=== PATIENT | male | born 1955 | race Caucasian/White ===

== ENCOUNTER 2020-01-06 11:09 | Outpatient (REF) | payer SELFPAY ==
--- NOTE | 2020-01-06 12:30 | MHC.AU.P13 ---
Hearing Instrument Follow-Up- Binaural Date of Visit: 01/06/20 Right Ear: Water Meter Installer: Phonak Model: Sunitha Q50-UP Serial Number: [id number] Warranty: 08/22/2017 Service Plan: 08/22/2017 Battery Size: 675 Type of Mold: Westone otoblast clear shell Left Ear: Water Meter Installer: Phonak Model: Sunitha Q50-UP Serial Number: [id number] Warranty: 08/22/2017 Service Plan: 08/22/2017 Battery Size: 675 Type of Mold: Westone otoblast clear shell Follow-Up Summary: Patient arrived to sweet pickled fruit maker his new Westone ear molds. Molds fit well-no feedback noted. Recommendations: Recommendations: Please contact our clinic with any questions or concerns. Diagnosis Code(s): Primary Diagnosis: H90.3 Bilateral Sensorineural Hearing Loss Services Performed: Hearing Aid Evaluation and Earmold:: Ear Mold, each Signature: Provider: Khari Wilson, CCC-A
== END 2020-01-06 11:10 | disposition home or self-care (01) ==
LOC: HO.HAP 11:09
PROVIDERS: Visit Provider Internal Medicine
DX: Z46.1 Encounter for fitting and adjustment of hearing aid (principal)
CPT/HCPCS: V5264

== ENCOUNTER → 2020-01-18 14:00 | Outpatient (BNVA) | payer OTHER, MEDICARE, SELFPAY | PROVIDERS: PCP Internal Medicine; Visit Provider Urology | DX: R33.9 Retention of urine, unspecified (principal) | CPT/HCPCS: 99203; 99204 ==

== ENCOUNTER 2020-01-31 12:15 | Outpatient (REF) | payer MEDICARE, OTHER, SELFPAY ==
[2020-01-31 14:40] LABS: Basophils Percent Auto 0.2 % (0-2); Eosinophils Absolute Auto 0.1 X10*3/uL (0.0-0.4); Eosinophils Percent Auto 0.2 % (0-4); Hematocrit 37.4 % (42-52); Imm Gran Abs Auto 0.34 X10*3/uL (0.00-0.03); Imm Gran Pct Auto 1.3 % (0.0-0.4); Lymphocytes Absolute Auto 1.5 X10*3/uL (1.2-4.9); Lymphocytes Percent Auto 5.5 % (20-40); MANUAL DIFF FLAG SCAN; Mean Corpuscular HGB Conc 32.1 g/dl (31.0-36.0); Mean Corpuscular Volume 87.4 fL (80-98); Mean Platelet Volume 10.1 fL (9.4-12.4); Monocytes Absolute Auto 1.2 X10*3/uL (0.1-1.2); Monocytes Percent Auto 4.7 % (2-11); Neutrophils Absolute Auto 23.1 X10*3/uL (2.0-8.3); Neutrophils Percent Auto 88.1 % (45-73); Platelet Count 217 X10*3/uL (160-400); Red Blood Count 4.28 X10*6/uL (4.60-5.80); Red Cell Distribution Width 13.8 % (11.0-16.0); SCAN SMEAR FLAG 1; White Blood Count 26.3 X10*3/uL (4.8-10.8)
[2020-01-31 15:02] LABS: Glucose Urine UA NEG (NEG); Leukocyte Esterase Urine 1+ (NEG); Nitrite Urine POS (NEG); Specific Gravity - Urine 1.025 (1.005-1.025); Urine Blood 3+ (NEG); Urine Ketones 5 MG/DL (NEG); Urine Protein 2+ MG/DL (NEG-TRACE)
[2020-01-31 15:03] LABS: Appearance Urine CLOUDY; Color Urine DARK YELLOW
[2020-01-31 15:11] LABS: Bacteria Urine 2+ /LPF; Sperm Urine NOTED; Squamous Epithelial Cell Urine 1+ /LPF
[2020-01-31 15:13] LABS: SLIDE REVIEW VERIFIED
[2020-01-31 15:18] LABS: Alanine Aminotransferase 15 U/L (0-40); Albumin Level 3.9 g/dL (3.5-5.0); Alkaline Phosphatase 76 U/L (39-117); Anion Gap 18 (12-20); Aspartate Amino Transferase 13 U/L (5-37); Bilirubin Total 1.6 mg/dL (0.0-1.0); Blood Urea Nitrogen 25 mg/dL (9-16); Calcium 8.7 mg/dL (8.4-10.2); Carbon Dioxide 24 mmol/L (22-29); Chloride 101 mmol/L (96-108); Estimated Glomerular Filt Rate 44; Glucose Random 156 mg/dL (60-115); Sodium 139 mmol/L (135-145); Total Protein 6.5 g/dL (6.5-8.0)
[2020-01-31 15:34] LABS: C Reactive Protein 32.89 mg/dL (< or = 0.50)
== END 2020-01-31 12:16 | disposition home or self-care (01) ==
LOC: HO.10HDL 12:15
PROVIDERS: Visit Provider Internal Medicine
DX: J44.9 Chronic obstructive pulmonary disease, unspecified (principal); Z94.0 Kidney transplant status
CPT/HCPCS: 36415; 80053; 81001; 81003; 85025; 86140; 87086; 87088; 87186

== ENCOUNTER 2020-01-31 12:47 | Outpatient (REF) | payer OTHER, MEDICARE, SELFPAY ==
--- NOTE | 2020-01-31 | US_ITS ---
EXAMINATION: US RENAL US ULTRASOUND CLINICAL INFORMATION: Bladder distention. COMPARISON: None TECHNIQUE: Routine ultrasound imaging of transplant kidney was performed. Routine ultrasound imaging of the scrotum was performed, as well. FINDINGS: TRANSPLANT KIDNEY ULTRASOUND: The transplant kidney measures 11.7 cm in length, 6.3 cm in AP and 7.71 cm wide. There is normal cortical thickness. No echogenic stones, cyst or hydronephrosis seen. There is no perinephric fluid collection. SCROTUM ULTRASOUND: Right testis measures 4.5 x 2.2 x 2.4 cm and volume 12.4 cm. Mild heterogenous echotexture is seen. There is no focal lesion. The right epididymis is enlarged and hyperinflated. The right epididymal tail measures 1.5 cm in AP dimension. There are small right epididymal head cysts measuring 0.4 x 0.4 x 0.5 cm. Mild increased vascularity is seen in the right epididymis. The left testis is homogeneous in echotexture measuring 4.3 x 2.9 x 3.2 cm and volume 20.9 mL. No focal lesion seen. The left epididymis is enlarged and hyperemic. The left epididymal tail measures 1.6 cm in AP dimension. There is increased vascular flow to left epididymis. There is a small left hydrocele. There is mild scrotal wall thickening measuring 0.8 cm on the right and 0.7 cm on the left. No evidence of varicocele. US/US scrotum IMPRESSION: Suspect bilateral epididymitis with epididymal enlargement. Heterogenous right testicle but no focal lesion seen. Normal left testis. Small left hydrocele. Diffuse scrotal skin wall thickening, as described above. Unremarkable transplant kidney ultrasound.
--- NOTE | 2020-01-31 13:19 | US_ITS ---
EXAMINATION: US RENAL US ULTRASOUND CLINICAL INFORMATION: Bladder distention. COMPARISON: None TECHNIQUE: Routine ultrasound imaging of transplant kidney was performed. Routine ultrasound imaging of the scrotum was performed, as well. FINDINGS: TRANSPLANT KIDNEY ULTRASOUND: The transplant kidney measures 11.7 cm in length, 6.3 cm in AP and 7.71 cm wide. There is normal cortical thickness. No echogenic stones, cyst or hydronephrosis seen. There is no perinephric fluid collection. SCROTUM ULTRASOUND: Right testis measures 4.5 x 2.2 x 2.4 cm and volume 12.4 cm. Mild heterogenous echotexture is seen. There is no focal lesion. The right epididymis is enlarged and hyperinflated. The right epididymal tail measures 1.5 cm in AP dimension. There are small right epididymal head cysts measuring 0.4 x 0.4 x 0.5 cm. Mild increased vascularity is seen in the right epididymis. The left testis is homogeneous in echotexture measuring 4.3 x 2.9 x 3.2 cm and volume 20.9 mL. No focal lesion seen. The left epididymis is enlarged and hyperemic. The left epididymal tail measures 1.6 cm in AP dimension. There is increased vascular flow to left epididymis. There is a small left hydrocele. There is mild scrotal wall thickening measuring 0.8 cm on the right and 0.7 cm on the left. No evidence of varicocele. US/US renal BI IMPRESSION: Suspect bilateral epididymitis with epididymal enlargement. Heterogenous right testicle but no focal lesion seen. Normal left testis. Small left hydrocele. Diffuse scrotal skin wall thickening, as described above. Unremarkable transplant kidney ultrasound.
== END 2020-01-31 12:48 | disposition home or self-care (01) ==
LOC: HO.US 12:47
PROVIDERS: PCP Internal Medicine; Visit Provider Internal Medicine
DX: N50.89 Other specified disorders of the male genital organs (principal); N32.89 Other specified disorders of bladder; N45.1 Epididymitis
CPT/HCPCS: 36415; 76775; 76870; 80053; 81001; 85025; 86140; 87086; 87088; 87186; 99212

== ENCOUNTER 2020-05-02 07:44 | Outpatient (REF) | payer OTHER, MEDICARE, SELFPAY ==
[2020-05-02 10:00] LABS: MANUAL DIFF FLAG NO
[2020-05-02 10:06] LABS: Basophils Percent Auto 0.2 % (0-2); Eosinophils Percent Auto 0.5 % (0-4); Hematocrit 39.7 % (42-52); Hemoglobin 13.1 g/dl (14.0-18.0); Imm Gran Abs Auto 0.01 X10*3/uL (0.00-0.03); Imm Gran Pct Auto 0.2 % (0.0-0.4); Lymphocytes Absolute Auto 1.8 X10*3/uL (1.2-4.9); Lymphocytes Percent Auto 32.4 % (20-40); Mean Corpuscular Hemoglobin 27.8 pg (27.0-33.0); Mean Corpuscular Volume 84.3 fL (80-98); Mean Platelet Volume 10.5 fL (9.4-12.4); Monocytes Absolute Auto 0.4 X10*3/uL (0.1-1.2); Monocytes Percent Auto 7.7 % (2-11); Neutrophils Absolute Auto 3.3 X10*3/uL (2.0-8.3); Platelet Count 140 X10*3/uL (160-400); Red Blood Count 4.71 X10*6/uL (4.60-5.80); Red Cell Distribution Width 14.3 % (11.0-16.0); White Blood Count 5.6 X10*3/uL (4.8-10.8)
[2020-05-02 10:35] LABS: Estimated Average Glucose 140 mg/dL; Hemoglobin A1c % 6.5 %
[2020-05-02 10:44] LABS: Creatinine Urine 150.26 mg/dL; Microalbum/Creatinine Ratio Ur 9.9 ug/mg cr
[2020-05-02 10:47] LABS: Alanine Aminotransferase 16 U/L (0-40); Albumin Level 3.9 g/dL (3.5-5.0); Alkaline Phosphatase 77 U/L (39-117); Anion Gap 13 (12-20); Aspartate Amino Transferase 18 U/L (5-37); Bilirubin Total 1.1 mg/dL (0.0-1.0); Blood Urea Nitrogen 20 mg/dL (9-16); Calcium 8.9 mg/dL (8.4-10.2); Carbon Dioxide 27 mmol/L (22-29); Chloride 107 mmol/L (96-108); Cholesterol 177 mg/dL; Estimated Glomerular Filt Rate > 60; Glucose Fasting 92 mg/dL (60-99); HDL Cholesterol 37 mg/dL; LDL Cholesterol Calculated 109 mg/dl; Magnesium 1.6 mg/dL (1.6-2.6); Potassium 3.8 mmol/l (3.3-5.1); Sodium 143 mmol/L (135-145); Total Protein 6.2 g/dL (6.5-8.0); Triglycerides 155 mg/dL
== END 2020-05-02 07:45 | disposition home or self-care (01) ==
LOC: HO.10HDL 07:44
PROVIDERS: Visit Provider Internal Medicine
DX: E11.9 Type 2 diabetes mellitus without complications (principal); I10 Essential (primary) hypertension; E78.5 Hyperlipidemia, unspecified; Z94.0 Kidney transplant status
CPT/HCPCS: 36415; 80053; 80061; 82043; 83036; 83735; 85025

== ENCOUNTER 2020-05-28 13:22 | Outpatient (REF) | payer SELFPAY ==
--- NOTE | 2020-05-28 13:52 | MHC.AU.P13 ---
Hearing Instrument Maintenance Date of Visit: 05/28/20 Right Ear: Stringing Machine Tender: Phonak Model: Sunitha Q50-UP Serial Number: [id number] Repair Warranty: 08/22/2017 Service Plan: 08/22/2017 Battery Size: 675 Tubing: TUBE LOCK Type of Mold: Westone otoblast clear shell Left Ear: Stringing Machine Tender: Phonak Model: Sunitha Q50-UP Serial Number: [id number] RepairWarranty: 08/22/2017 Service Plan: 08/22/2017 Battery Size: 675 Tubing: TUBE LOCK Type of Mold: Westone otoblast clear shell Summary: Patient seen for tubing change as well as replaced amanda covers - gave patient extra. He states (as at last visit) he's interested in new hearing aids and will obtain MD order for audiological re-evaluation. Aids amplifying clearly but volume control not working. Aids are now five years old. Signature: Provider: CLARITA Lamar-
== END 2020-05-28 13:23 | disposition home or self-care (01) ==
LOC: HO.HAP 13:22
DX: Z13.89 Encounter for screening for other disorder (principal)

== ENCOUNTER 2020-06-01 08:54 | Outpatient (REF) | payer OTHER, MEDICARE, SELFPAY ==
--- NOTE | 2020-06-01 11:20 | MHC.AU.MED ---
Medical Clearance for Hearing Instrumentation Date: 06/01/20 Patient Name: Octavio De Guzman JR Date of : 1955 Primary Care Provider: Referring Provider: Oziel Solomon MD We have seen your patient on 06/01/20 and have determined that they are a candidate for amplification (See accompanying report). Specifically, they would benefit from: Hearing aid use in both ears There is a statute that addresses Medical Evaluation Requirements prior to fitting a patient with a hearing aid. According to [place] statute 265 CMR:6.03(1), (a) General. Except as provided in 265 CMR 6.03(1)(b), a accounts supervisor shall not sell a hearing aid unless the prospective user has presented to the accounts supervisor a written statement signed by a licensed physician that states that the patient's hearing loss has been medically evaluated and the patient may be considered a candidate for a hearing aid. The medical evaluation must have taken place within the preceding six months. Please note: Due to the [place] Statute referenced above, we cannot accept a signature other than that of a licensed physician. MANAGER DISTRIBUTION and PA signatures cannot be accepted. I am in agreement with the above recommendation. There is no medical contraindication for hearing instrumentation. Physician Signature Date Physician Name (Printed)
--- NOTE | 2020-06-04 13:10 | MHC.AU.P13 ---
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 Octavio is also interested in obtaining new hearing aids. Previous Hearing Test Results: 05/24/2014 [facility] Bilateral moderate dropping to profound sensorineural hearing loss with 56% speech understanding for the right ear and 28% for the left ear Ear History: History of Ear Wax Buildup: Very dry and flaking skin in both ear canals Medical History: Medical History: Cancer Diabetes Heart Problems High Blood Pressure Polycystic Kidney Disease with Kidney Transplant High cholesterol Skin Cancer treated with radiation and chemotherapy completed in March 2020 Medication List: Tacrolimus, Prednisone, Carvedilol, Ezetimibe, Omeprazole, Humilin, Tyrone 3, Fish Oil Hearing Instrument History- Right Ear: Stage Setting Painter Apprentice: Xyleme Model: Sunitha Q50-UP Serial Number: [id number] Battery Size: 675 Repair Warranty: 08/22/2017 Loss and Damage Warranty: Service Plan: 08/22/2017 Dispensed By: [facility] Date of Fittin06/14/2014 Hearing Instrument History- Left Ear: Stage Setting Painter Apprentice: Pixabilityak Model: Sunitha Q50-UP Serial Number: [id number] Battery Size: 675 Warranty: 08/22/2017 Loss and Damage Warranty: Service Plan: 08/22/2017 Dispensed By: [facility] Date of Fittin06/14/2014 Otoscopy: Right Ear: Partially occluded with cerumen Left Ear: Partially occluded with cerumen Tympanometry: Tympanometry performed due to: To determine if cerumen blockage is fully occluding canal(s) Right Ear: Normal Middle Ear System (Type A) Left Ear: Normal Middle Ear System (Type A) Hearing Evaluation: Transducer(s) Used: Insert Earphones Bone Conduction Method: Conventional Audiometry Stimuli Used: Pure Tones Right Ear: Description of Hearing: Severe to profound sensorineural hearing loss with a mixed component noted at 1000 Hz. Thresholds are 10-20 dB poorer for the right ear compared to the left at 250, 2000, and 6000 Hz. Left Ear: Description of Hearing: Severe to profound sensorineural hearing loss with a mixed component noted at 1000 Hz. Speech Recognition Threshold (SRT): Method Used: Monitored Live Voice Stimuli Used: Spondee Words Right Ear: 80 dB HL Left Ear: 75 dB HL Word Discrimination: Method: Recorded Lists Word Lists Used: NU-6 Right Ear: 68% at 110 dB HL Left Ear: 72% at 105 dB HL Comparison: Compared to the most recent evaluation: Thresholds have decreased bilaterally. Speech discrimination has improved for both ears compared to 2015 results Recommendations: Audiological re-evaluation in one year. Will send a reminder card Trial with new amplification is recommended. Medical clearance from a physician is required before fitting. Hearing Aid Fitting will be scheduled when all materials arrive. Follow-up with physician for cerumen removal. See Hearing Aid Evaluation report for more information. Used Ear Wax M.D. ear drops today. Recommend Octavio obtain these [id number] ear drops to use periodically to reduce cerumen buildup. Advise cerumen removal by a physician prior to fitting of the new hearing aids. Also discussed using Hydrocortisone Cream to help with the itch and flaking of the skin of the ears. Diagnosis: Primary Diagnosis: H90.3 Bilateral Sensorineural Hearing Loss Services Performed: Comprehensive Audiological Evaluation (CPT 79135) Tympanometry (CPT 65477) Signature: Provider: Khari Sheikh, MELODIE-A
--- NOTE | 2020-06-04 13:24 | MHC.AU.P13 ---
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 Patient would like to purchase new aids. He will contact his insurance company to determine if he has any benefit. Discussed hearing aid options and levels of technology. Hearing Instrument Selection: Right Ear: Dental Equipment Technician: Phonak Model: Sunitha P 50-UP Battery Size: 675 Color: Sand Beige Tubing: TUBE LOCK Type of Mold: Westone [place] clear shell Left Ear: Dental Equipment Technician: Phonak Model: Sunitha P 50-UP Battery Size: 675 Color: Sand Beige Tubing: TUBE LOCK Type of Mold: Westone [place] clear shell Accessories/Assistive Technology: Plan: Plan of Care for Hearing Instrument Fitting: Patient wishes to purchase hearing aids as prescribed Action Taken/Action Needed: Earmold Impressions Taken Medical Clearance to be requested from PCP/ENT Hearing Fitting to be scheduled when materials arrive Comments: Purchasing new hearing aids. Will schedule Hearing Aid Fitting when all materials arrive. Diagnosis Code(s): Primary Diagnosis: H90.3 Bilateral Sensorineural Hearing Loss Services Performed: Binaural Hearing Aid Evaluation and earmold impressions [place] Non-Quantity Charges: HANC: NonBillable Event Signature: Provider: Khari Sheikh, MELODIE-A
== END 2020-06-01 08:55 | disposition home or self-care (01) ==
LOC: HO.SH 08:54
PROVIDERS: Visit Provider Internal Medicine
DX: H90.3 Sensorineural hearing loss, bilateral (principal)
CPT/HCPCS: 92557; 92567

== ENCOUNTER 2020-06-01 10:27 | Outpatient (REF) | payer SELFPAY | END 2020-06-01 10:28 | disposition home or self-care (01) | LOC: HO.HAP 10:27 | PROVIDERS: Visit Provider Internal Medicine | DX: H90.3 Sensorineural hearing loss, bilateral (principal) | CPT/HCPCS: 92700; V5261 ==

== ENCOUNTER 2020-07-04 09:52 | Outpatient (REF) | payer SELFPAY | END 2020-07-04 09:53 | disposition home or self-care (01) | LOC: HO.HAP 09:52 | PROVIDERS: Visit Provider Internal Medicine | DX: Z46.1 Encounter for fitting and adjustment of hearing aid (principal); Z90.3 Acquired absence of stomach [part of] | CPT/HCPCS: V5261 ==

== ENCOUNTER 2020-07-13 10:50 | Outpatient (REF) | payer OTHER, MEDICARE, SELFPAY ==
[2020-07-13 14:01] LABS: MANUAL DIFF FLAG NO
[2020-07-13 14:11] LABS: Basophils Percent Auto 0.1 % (0-2); Eosinophils Percent Auto 0.6 % (0-4); Hematocrit 39.8 % (42-52); Hemoglobin 13.1 g/dl (14.0-18.0); Imm Gran Abs Auto 0.03 X10*3/uL (0.00-0.03); Imm Gran Pct Auto 0.4 % (0.0-0.4); Lymphocytes Absolute Auto 1.4 X10*3/uL (1.2-4.9); Lymphocytes Percent Auto 20.3 % (20-40); Mean Corpuscular HGB Conc 32.9 g/dl (31.0-36.0); Mean Corpuscular Hemoglobin 28.1 pg (27.0-33.0); Mean Corpuscular Volume 85.4 fL (80-98); Mean Platelet Volume 10.5 fL (9.4-12.4); Monocytes Absolute Auto 0.4 X10*3/uL (0.1-1.2); Monocytes Percent Auto 6.3 % (2-11); Neutrophils Absolute Auto 4.8 X10*3/uL (2.0-8.3); Neutrophils Percent Auto 72.3 % (45-73); Platelet Count 153 X10*3/uL (160-400); Red Blood Count 4.66 X10*6/uL (4.60-5.80); Red Cell Distribution Width 14.3 % (11.0-16.0); White Blood Count 6.7 X10*3/uL (4.8-10.8)
[2020-07-13 14:38] LABS: Alanine Aminotransferase 16 U/L (0-40); Albumin Level 4.1 g/dL (3.5-5.0); Alkaline Phosphatase 91 U/L (39-117); Anion Gap 12 (12-20); Aspartate Amino Transferase 15 U/L (5-37); Bilirubin Total 0.8 mg/dL (0.0-1.0); Blood Urea Nitrogen 16 mg/dL (9-16); Calcium 9.1 mg/dL (8.4-10.2); Carbon Dioxide 30 mmol/L (22-29); Chloride 106 mmol/L (96-108); Estimated Glomerular Filt Rate 59; Glucose Random 173 mg/dL (60-115); Sodium 144 mmol/L (135-145); Total Protein 6.5 g/dL (6.5-8.0)
== END 2020-07-13 10:51 | disposition home or self-care (01) ==
LOC: HO.10HDL 10:50
PROVIDERS: Visit Provider Internal Medicine
DX: I12.9 Hypertensive chronic kidney disease with stage 1 through stage 4 chronic kidney disease, or unspecified chronic kidney disease (principal); N18.9 Chronic kidney disease, unspecified; K21.9 Gastro-esophageal reflux disease without esophagitis
CPT/HCPCS: 36415; 80053; 85025

== ENCOUNTER 2020-08-02 12:27 | Outpatient (REF) | payer OTHER, SELFPAY | END 2020-08-02 12:28 | disposition home or self-care (01) | LOC: HO.HAP 12:27 | PROVIDERS: Visit Provider Internal Medicine | DX: Z46.1 Encounter for fitting and adjustment of hearing aid (principal); H90.3 Sensorineural hearing loss, bilateral | CPT/HCPCS: 93005; V5299 ==

== ENCOUNTER → 2020-08-02 | Outpatient (REF) | payer OTHER, SELFPAY | LOC: HO.CARD | PROVIDERS: Visit Provider Internal Medicine Cardiovascular Disease | DX: R07.9 Chest pain, unspecified (principal) | CPT/HCPCS: 93005 ==

== ENCOUNTER → 2020-08-13 08:12 | Outpatient (REF) | payer OTHER, SELFPAY ==
--- NOTE | 2020-08-13 | CA_ITS ---
Acquisition Time: 2020-08-13 08:28:35 Total Exercise Time: 00:07:02 Test Indications: Chest Pain Medications: AMLODIPINE CARVEDILOL EZETIMIBE INSULIN OMEPRAZOLE PREDNISONE TACRILIMUS Protocol: PHOEBE Max HR: 125 BPM 81% of Pred: 154 BPM Max BP: 160/074 mmHG Max Work Load: 8.6 METS Exercise stress nuclear using Phoebe protocol, total of 7 min 2 sec. METS 8.60 and TAPHR up to 81 %. Pt tolerated well, reports mild chest thightness at peak exercise that resolved in couple minutes. EKG with occ. PAC's and PVC's, No ischemic changes seen during exercise or in recovery. Nuclear images to follow. Normotensive response to exercise. Test reviewed with Dr. Hobbs. Referred By: Kye Brown Overread By: Carolee Hudson NP
--- NOTE | ~2020-08-13 | NM_ITS ---
Exercise Myocardial perfusion study Indication: Chest pain to evaluate for myocardial ischemia Technique: The patient was brought in for an exercise perfusion study on 08/13/2020. Patient performed exercise as per Sohan protocol and was injected 25 mCi of sestamibi was given intravenously one target HR was achieved. Images were obtained using the SPECT gamma camera interlaced with the gating device. Images were obtained in supine position. Resting perfusion study was performed on 08/14/2020. Patient was administered 25 mCi of sestamibi intravenously at rest. Images were then obtained in supine position. Images obtained with and without CT attenuation. Total DLP 83 mGy-cm. Images were processed with the software and compared side to side in short axis, horizontal long axis and vertical long axis views. Findings: The stress perfusion study showed non attenuated images show mildly reduced uptake in the basal and mid inferior wall of the LV myocardium. Remainder of the LV myocardium normally perfused. Attenuation corrected images show minimally reduced uptake in the apex of the LV myocardium.. The gated study shows normal LV systolic function with calculated LVEF of 68%. LV cavity is normal in size. The gated study shows normal systolic wall thickening and contraction of all segments. There is no transient ischemic dilation. Resting study shows no change in perfusion pattern compared to stress perfusion study. Gating at rest reveals normal systolic wall motion with ejection fraction at 59%. The findings are consistent with normal myocardial perfusion. NM/NM cardiolite stress test Impression: 1. Normal myocardial perfusion 2. Gated LVEF is 68% 3. Transient ischemic dilatation not present Stress EKG is equivocal for ischemia
== END ==
LOC: HO.CARD 08:12
PROVIDERS: PCP Internal Medicine; Visit Provider Internal Medicine Cardiovascular Disease
DX: R07.9 Chest pain, unspecified (principal)
CPT/HCPCS: 78452; 93016; 93017; 93018; A9500

== ENCOUNTER → 2020-08-23 12:36 | Outpatient (BNVA) | payer OTHER, SELFPAY | PROVIDERS: PCP Internal Medicine; Referring Provider Internal Medicine; Visit Provider Internal Medicine Cardiovascular Disease ==

== ENCOUNTER 2020-10-23 12:30 | Outpatient (REF) | payer OTHER, SELFPAY ==
--- NOTE | 2020-10-23 17:13 | PFT_ITS ---
Forced vital capacity is normal. FEV1 in normal range, but FEV1/FVC is at the borderline level. [id number] normal and MVV also normal. Post bronchodilator therapy, there is no significant change. Total lung capacity normal. Residual volume slightly increased. Diffusion capacity is slightly decreased. CONCLUSION: These study is within normal limits. However, FEV1/FVC ratio is at the lower limit of normal and diffusion capacity is slightly decreased. This may indicate presence of pulmonary emphysema. Clinical correlation is recommended. Kenia Mckeon MD MSB/MODL / [id number]
== END 2020-10-23 12:31 | disposition home or self-care (01) ==
LOC: HO.RESP 12:30
PROVIDERS: PCP Internal Medicine; Visit Provider Internal Medicine Cardiovascular Disease
DX: R07.9 Chest pain, unspecified (principal)
CPT/HCPCS: 94060; 94727; 94729

== ENCOUNTER → 2020-10-25 13:03 | Outpatient (BNVA) | payer OTHER, SELFPAY | PROVIDERS: PCP Internal Medicine; Referring Provider Internal Medicine; Visit Provider Nurse Practitioner Family ==

== ENCOUNTER 2020-12-11 06:53 | Emergency (ER) | payer OTHER, SELFPAY ==
[2020-12-11 07:06] VITALS: BP 175/94; PULSE 68; RESP 18; O2SAT 97
[2020-12-11 07:12] VITALS: BP 175/94; PULSE 68; RESP 16; TEMP 36.5; O2SAT 99; BMI 24.2
--- NOTE | 2020-12-11 07:43 | ED.WOUNDLAC ---
HPI - Wound/Laceration General Chief Complaint: Wound/Laceration Stated Complaint: laceration to abdomin Time Seen by Provider: 12/11/20 07:37 Source: patient Mode of arrival: ambulatory Limitations: no limitations History of Present Illness HPI narrative: 65 years old male came in for evaluation of superficial wound on right chest wall. 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 when it slipped and cut his right side of the chest, no active bleeding, no shortness of breath, not sure when the last booster for tetanus shot, Related Data Home Medications Medication Instructions Recorded Confirmed carvedilol 25 mg tablet 25 mg PO BID 01/18/20 10/25/20 ezetimibe 10 mg tablet 10 mg PO DAILY 01/18/20 10/25/20 omeprazole 20 mg tablet,delayed 20 mg PO DAILY 01/18/20 10/25/20 release prednisone 5 mg/5 mL oral solution 5 mg PO DAILY 01/18/20 10/25/20 tacrolimus 1 mg capsule,extended 1 mg PO QAM 01/18/20 10/25/20 release 24 hr amlodipine 10 mg tablet 10 mg PO DAILY 08/02/20 10/25/20 insulin NPH isoph U-100 human 100 14 unit SUBCUT QAM ml 08/02/20 10/25/20 unit/mL (3 mL) subcutaneous pen (Humulin N NPH U-100 Insulin KwikPen) apixaban 5 mg tablet (Eliquis) 5 mg PO BID 10/25/20 10/25/20 Allergies Allergy/AdvReac Type Severity Reaction Status Date / Time No Known Allergies Allergy Mild NOT Verified 10/25/20 13:13 [No Known Allergies*] APPLICABLE Review of Systems Review of Systems: All other systems are reviewed and are negative Constitutional: Reports as per HPI and Reports no additional constitutional complaints Eyes: Reports as per HPI and Reports no additional eye complaints Reports system reviewed and no additional complaints, except as documented Cardiovascular: Reports as per HPI and Reports no additional cardiovascular complaints Respiratory: Reports as per HPI and Reports no additional respiratory complaints Gastrointestinal: Reports as per HPI and Reports no additional gastrointestinal complaints Genitourinary: Reports no additional female genitourinary complaints Musculoskeletal: Reports no additional musculoskeletal complaints Skin/Breast: Reports system reviewed and no additional complaints, except as docu Psychiatric: Reports no additional psychiatric complaints Endocrine: Reports no additional endocrine complaints Hematologic/Lymphatic: Reports no additional hematologic/lymphatic complaints Allergic/Immunologic: Reports no additional allergic/immunologic complaints Reports system reviewed and no additional complaints, except as documented and Reports Abnormal speech present [facility] Past Medical History Medical History (Updated 12/11/20 @ 07:49 by Lucille Kessler MD) Essential hypertension Hyperlipidemia Surgical History History of skin surgery Kidney replaced by transplant Renal transplant recipient S/P nasal surgery Family History Family History Father Kidney disease Social History Social History Alcohol intake: current Patient Tobacco Use Status: Former Tobacco user Quit Date: 1989 Smoked: 12+ Advance Directives: No Advance Directives Information Provided: No Advance Directives Date on File: 01/06/20 Physical Exam Vital Signs: Vital Signs: Last Vital Signs Temp 97.7 F 12/11/20 07:12 Pulse 68 12/11/20 07:12 Resp 16 12/11/20 07:12 BP 175/94 H 12/11/20 07:12 Pulse Ox 99 12/11/20 07:12 Body Mass Index 24.2 Vital signs have been reviewed as appeared to be correct. Blood pressure elevated. Heart rate normal. Respiration rate normal. Temperature normal. Oxygen saturation normal. Appearance: Alert. Oriented X3. No acute distress. Head: Normal external exam. Normocephalic. Atraumatic. No Doherty signs noted. No raccoon eyes noted Eyes: PERRLA. EOMI. Conjunctiva and sclera normal. Eyelids normal. ENT: TM's Normal. Pharynx normal. Uvula midline. Moist mucous membranes. No trismus noted. No drooling noted. No muffled voice noted. Neck: Normal inspection. Neck supple. FROM. No adenopathy. Thyroid Normal. No meningeal signs. No neck mass noted. CVS: Normal heart rate and rhythm. Heart sound normal. No murmurs noted. Pulses normal throughout. Respiratory: No respiratory distress. Painless inspiration. Breath sounds normal. No wheezes/rales/rhonchi noted. 3 cm superficial laceration on the right chest wall midclavicular line. No accessory muscle usage noted or decreased air movement noted. Abdomen: Soft and nontender. Bowel sounds normal in all 4 quadrants. No distention noted. No organomegaly noted. No visible injury noted. Back: No CVA tenderness. Full range of motion noted. Skin: Skin warm and dry. Normal skin color. Normal skin turgor. No rashes/lesions/lacerations noted. Extremities: No lower extremity edema. Extremities exhibit normal range of motion. Extremities nontender. Neuro: Oriented X 3. Cranial nerve exam: II-XII are grossly intact No motor deficit. No sensory deficit. Reflexes normal. Course Course Course Narrative: Status post superficial chest wound incidentally cut himself with the boxing instructor. Procedures Laceration Laceration 1: Pre-repair: wound explored Size (cm): other (Dermabond) Discharge Plan Discharge Clinical Impression: Laceration Patient Disposition: Home, Self-Care Instructions: Skin Adhesive Care (ED) Prescriptions: No Action tacrolimus 1 mg capsule,extended release 24hr 1 mg PO QAM RF: 0 prednisone 5 mg/5 mL solution 5 mg PO DAILY RF: 0 carvedilol 25 mg tablet 25 mg PO BID RF: 0 ezetimibe 10 mg tablet 10 mg PO DAILY RF: 0 omeprazole 20 mg tablet,delayed release (DR/EC) 20 mg PO DAILY RF: 0 Humulin N NPH Insulin KwikPen 100 unit/mL (3 mL) insulin pen 14 unit subcut QAM RF: 0 amlodipine 10 mg tablet 10 mg PO DAILY RF: 0 Eliquis 5 mg tablet 5 mg PO BID RF: 0 Referrals: Oziel Solomon MD [Primary Care Provider] - 2 days
[2020-12-11] MEDS: Diphth,Pertus(ACell),Tet Adult 0.5 ML SYRINGE IM (08:16)
== END 2020-12-11 08:57 | disposition home or self-care (01) ==
PROVIDERS: Emergency Provider Emergency Medicine; PCP Internal Medicine
DX: S21.111A Laceration without foreign body of right front wall of thorax without penetration into thoracic cavity, initial encounter (principal); W27.8XXA Contact with other nonpowered hand tool, initial encounter; I10 Essential (primary) hypertension; E78.5 Hyperlipidemia, unspecified; Y93.E9 Activity, other interior property and clothing maintenance; Y92.9 Unspecified place or not applicable; Y99.9 Unspecified external cause status
CPT/HCPCS: 12001; 90471; 90715; 99283; 99284

== ENCOUNTER 2020-12-17 15:00 | Outpatient (REF) | payer OTHER, MEDICARE, SELFPAY ==
--- NOTE | ~2020-12-17 | XR_ITS ---
EXAMINATION: XR CHEST CLINICAL INFORMATION: Dyspnea COMPARISON: None TECHNIQUE: 2 views of the chest were obtained. FINDINGS: There is no evidence of acute parenchymal disease, pneumothorax, or pleural effusion. Heart normal size. No evidence of pulmonary edema. Right subclavian stents present. XR/XR chest 2V IMPRESSION: No acute disease.
== END 2020-12-17 15:01 | disposition home or self-care (01) ==
LOC: HO.XRAY 15:00
PROVIDERS: PCP Internal Medicine; Visit Provider Internal Medicine
DX: R06.00 Dyspnea, unspecified (principal); I25.10 Atherosclerotic heart disease of native coronary artery without angina pectoris; Z87.891 Personal history of nicotine dependence
CPT/HCPCS: 71046; Q3014

== ENCOUNTER 2021-01-17 09:40 | Outpatient (REF) | payer OTHER, MEDICARE, SELFPAY ==
[2021-01-17 10:42] LABS: Anion Gap 15 (12-20); Blood Urea Nitrogen 18 mg/dL (9-16); Calcium 9.8 mg/dL (8.4-10.2); Carbon Dioxide 27 mmol/L (22-29); Chloride 106 mmol/L (96-108); Estimated Glomerular Filt Rate > 60; Glucose Random 166 mg/dL (60-115); Potassium 3.7 mmol/L (3.3-5.1); Sodium 144 mmol/L (135-145)
[2021-01-17 10:51] LABS: Estimated Average Glucose 146 mg/dL; Hemoglobin A1c % 6.7 %
== END 2021-01-17 09:41 | disposition home or self-care (01) ==
LOC: HO.10HDL 09:40
PROVIDERS: Visit Provider Internal Medicine
DX: E11.9 Type 2 diabetes mellitus without complications (principal)
CPT/HCPCS: 36415; 80048; 83036

== ENCOUNTER → 2021-03-15 15:33 | Outpatient (BNVA) | payer OTHER, MEDICARE, SELFPAY | PROVIDERS: PCP Internal Medicine; Visit Provider Urology | DX: N40.1 Benign prostatic hyperplasia with lower urinary tract symptoms (principal); N13.8 Other obstructive and reflux uropathy; Z87.438 Personal history of other diseases of male genital organs | CPT/HCPCS: 51798 ==

== ENCOUNTER 2021-07-10 11:05 | Outpatient (REF) | payer SELFPAY | END 2021-07-10 11:06 | disposition home or self-care (01) | LOC: HO.HAP 11:05 | PROVIDERS: Visit Provider Internal Medicine | DX: Z13.89 Encounter for screening for other disorder (principal) ==

== ENCOUNTER 2022-03-03 09:00 | Outpatient (REF) | payer SELFPAY | END 2022-03-03 09:01 | disposition home or self-care (01) | LOC: HO.HAP 09:00 | PROVIDERS: Visit Provider Internal Medicine | DX: Z13.89 Encounter for screening for other disorder (principal) ==

== ENCOUNTER 2022-04-21 10:28 | Day surgery (SDC) | payer OTHER, MEDICARE, SELFPAY ==
--- NOTE | 2022-04-18 09:50 | HO.ANESPROP2 ---
Documented by User: Maegan Sarabia NP 04/18/22 12:38 HPI - Anesthesia Eval Consult details Narrative: 67yo M for Colonoscopy s/p renal transplant 2007 Hx DVT, no anticoag now PMFSH Active Problems Active Problems: All Active Problems (Updated 04/18/22 @ 06:39 by Ginna Ortega, RN) Urinary retention with incomplete bladder emptying (Acute) Epididymitis (Acute) Chest pain (Acute) Dyspnea (Acute) BPH w urinary obs/LUTS (Acute) Hyperlipidemia (Acute) Renal transplant recipient (Acute) Essential hypertension (Acute) Past Medical History Medical History (Updated 04/18/22 @ 06:39 by Ginna Ortega RN) Diabetes Essential hypertension Hyperlipidemia Family History Family History Father Kidney disease Surgical History Surgical History History of skin surgery Kidney replaced by transplant Renal transplant recipient S/P nasal surgery Social History Social History Alcohol intake: current Patient Tobacco Use Status: Former Tobacco user Quit Date: age 33 Years Smoked: 12+ Use of substances other than those prescribed or required for medical reasons: No Are you DNR?: No Advance Directives: Yes Advance Directives on File: Yes Advance Directives Date on File: 01/06/20 Meds Allergies Allergy/AdvReac Type Severity Reaction Status Date / Time No Known Allergies Allergy Mild NOT Verified 03/15/21 15:39 [No Known Allergies*] APPLICABLE Home Medications Medication Instructions Recorded Confirmed Last Taken Type carvedilol 25 mg tablet 25 mg PO BID 01/18/20 04/21/22 Unknown History ezetimibe 10 mg tablet 10 mg PO DAILY 01/18/20 04/21/22 Unknown History omeprazole 20 mg tablet,delayed 20 mg PO DAILY 01/18/20 04/21/22 Unknown History release prednisone 5 mg/5 mL oral solution 7.5 mg PO DAILY 01/18/20 04/21/22 Unknown History tacrolimus 1 mg capsule,extended 2 mg PO BID 01/18/20 04/21/22 Unknown History release 24 hr amlodipine 10 mg tablet 10 mg PO DAILY 08/02/20 04/21/22 Unknown History insulin NPH isoph U-100 human 100 14 unit subcut QAM 08/02/20 04/21/22 Unknown History unit/mL (3 mL) subcutaneous pen (Humulin N NPH U-100 Insulin KwikPen) Exam Exam Date and Time: April 18, 2022 0950 Assessment and Plan Assessment Anesthesia Assessment: Chart Reviewed Documented by User: Sofia Reddy MD 04/21/22 12:58 REPLACED BY [facility] Past Medical History Medical History (Updated 04/18/22 @ 06:39 by Ginna Ortega RN) Diabetes Essential hypertension Hyperlipidemia Family History Family History Father Kidney disease Family history of problems with anesthesia: No Surgical History Surgical History History of skin surgery Kidney replaced by transplant Renal transplant recipient S/P nasal surgery History of Problems with Anesthesia: No Social History Social History Alcohol intake: current Patient Tobacco Use Status: Former Tobacco user Quit Date: age 33 Years Smoked: 12+ Use of substances other than those prescribed or required for medical reasons: No Are you DNR?: No Advance Directives: Yes Advance Directives on File: Yes Advance Directives Date on File: 01/06/20 Meds Allergies Allergy/AdvReac Type Severity Reaction Status Date / Time No Known Allergies Allergy Mild NOT Verified 03/15/21 15:39 [No Known Allergies*] APPLICABLE Home Medications Medication Instructions Recorded Confirmed Last Taken Type carvedilol 25 mg tablet 25 mg PO BID 01/18/20 04/21/22 Unknown History ezetimibe 10 mg tablet 10 mg PO DAILY 01/18/20 04/21/22 Unknown History omeprazole 20 mg tablet,delayed 20 mg PO DAILY 01/18/20 04/21/22 Unknown History release prednisone 5 mg/5 mL oral solution 7.5 mg PO DAILY 01/18/20 04/21/22 Unknown History tacrolimus 1 mg capsule,extended 2 mg PO BID 01/18/20 04/21/22 Unknown History release 24 hr amlodipine 10 mg tablet 10 mg PO DAILY 08/02/20 04/21/22 Unknown History insulin NPH isoph U-100 human 100 14 unit subcut QAM 08/02/20 04/21/22 Unknown History unit/mL (3 mL) subcutaneous pen (Humulin N NPH U-100 Insulin KwikPen) Exam Airway Mallampati Class: II TM Dist: >3cm Neck ROM: Full Heart: rr Lungs: cts Assessment and Plan Final Anesthetic Review Family History of Problems with Anesthesia: No History of Problems with Anesthesia: No NPO: Yes ASA Class: II Final Preanesthetic Review: No Changes in Pt Med Stat, Meds/Allgs Chart Reviewed, Consent Obtained/Reviewed and Anes Risks/Benef Reviewed Patient Risk: Low Procedure Risk: Low Anesthetic Plan Anesthetic Plan: MAC: Disposition: Standard PACU
[2022-04-21 11:13] VITALS: BP 136/81; PULSE 71; RESP 18; TEMP 36.6; O2SAT 96; BMI 25.2
[2022-04-21 11:41] LABS: Glucose, Whole Blood 127 mg/dL (60-115)
[2022-04-21 12:01] LABS: Hematocrit 42.3 % (42.0-52.0); Hemoglobin 14.5 g/dl (14.0-18.0); Mean Corpuscular HGB Conc 34.3 g/dl (31.0-36.0); Mean Corpuscular Hemoglobin 28.3 pg (27.0-33.0); Mean Corpuscular Volume 82.5 fL (80.0-98.0); Mean Platelet Volume 9.6 fL (9.4-12.4); Platelet Count 114 X10*3/uL (160-400); Red Blood Count 5.13 X10*6/uL (4.60-5.80); Red Cell Distribution Width 13.7 % (11.0-16.0); White Blood Count 6.2 X10*3/uL (4.8-10.8)
[2022-04-21 12:05] LABS: INTERNATIONAL NORM RATIO 1.1 (0.9-1.1); Prothrombin Time 12.4 SEC (10.0-13.1)
[2022-04-21 12:10] LABS: Anion Gap 14 (12-20); Blood Urea Nitrogen 12 mg/dL (9-16); Calcium 9.1 mg/dL (8.4-10.2); Carbon Dioxide 28 mmol/L (22-29); Chloride 104 mmol/L (96-108); Creatinine Clr Calc Pharmacy 58.8; Estimated Glomerular Filt Rate 58; Glucose Fasting 124 mg/dL (60-99); Potassium 3.8 mmol/L (3.3-5.1); Sodium 142 mmol/L (135-145)
[2022-04-21 13:48] VITALS: BP 125/76; PULSE 66; RESP 18; TEMP 36.6; O2SAT 96
--- NOTE | 2022-04-21 13:48 | PM.OP ---
Brief Operative Note Date of Service: 04/21/22 Pre-op diagnosis: + Cologuard test Post-op diagnosis: other (Colon polyps) Procedure: Colonoscopy to the cecum and TI with bx/removal of cecal polyp, and hot snare polypectomy of transverse colon polyp Surgeon: Octavio Acosta Anesthesia: MAC Was an Printing Machine Mechanic used for this Procedure?: No Estimated blood loss (mL): 2.0 Pathology: other (A. Cecal polyp B. Transverse colon polyp) Condition: stable Disposition: PACU
[2022-04-21 14:03] VITALS: BP 141/76; PULSE 69; RESP 18; TEMP 36.6; O2SAT 96
--- NOTE | 2022-04-21 23:57 | OP_ITS ---
SURGEON: Octavio Acosta MD INDICATIONS: The patient presents for evaluation of a positive Cologuard test. Full consent has been obtained from him for this, including risks of bleeding and perforation. PREOPERATIVE DIAGNOSIS: Positive Cologuard test. POSTOPERATIVE DIAGNOSIS: PROCEDURE PERFORMED: Colonoscopy to the cecum and terminal ileum with biopsy and removal of polyp, and hot snare polypectomy. ESTIMATED BLOOD LOSS: COMPLICATIONS: ANESTHESIA: Medication used, monitored anesthesia care. ASSISTANTS: SPECIMENS: POSTOPERATIVE DIAGNOSES: Positive Cologuard test, colon polyps, diverticulosis, and internal hemorrhoids. DESCRIPTION OF PROCEDURE: The patient was placed in the left lateral decubitus position. The digital rectal exam revealed no abnormalities. The Olympus video pediatric colonoscope was entered into the rectum and advanced easily to the cecum. Once in the cecum, I did identify cecal pouch with appendiceal orifice and a normal-appearing ileocecal valve. The terminal ileum was cannulated and appeared normal. Scope was withdrawn back in the colon. The entire cecum was well visualized. In the cecum, was an approximately 5 mm flat and slightly raised area that I suspect was probably more of mucosal edema, but it was biopsied with the cold biopsy forceps with basically all tissue removed. The remainder of the cecum appeared normal. The scope was slowly withdrawn assessing all mucosal surfaces carefully. Preparation was excellent. In the transverse colon, was an approximately 10 to 12 mm polyp which was removed by hot snare polypectomy and recovered by suction. The polypectomy site appeared clean, without any sign of residual polyp nor bleeding. I did not visualize any other polyps, colitis, or angiodysplasia. There was a mild amount of sigmoid diverticulosis. In the rectum, the scope was retroflexed visualizing internal hemorrhoids, but no other pathology. The rectal mucosa appeared normal. Scope was straightened out and withdrawn from the patient. He tolerated the procedure well and was returned to the recovery area in stable condition. IMPRESSION: 1. Colon polyps. 2. Diverticulosis. 3. Internal hemorrhoids. PLAN: The results of the pathology will be checked. If the polyps are tubular adenomas, I would recommend a repeat colonoscopy in 5 years. He was advised not to use any aspirin or NSAIDs for 1 week. He was advised to stay off his fish oil for another week as well. This has been discussed with his . MD AMARI Pedro/AYESHA / [id number]
== END 2022-04-21 14:53 | disposition home or self-care (01) ==
PROVIDERS: Nurse Practitioner; PCP Internal Medicine; Visit Provider Internal Medicine
PROC: 0DJD8ZZ Inspection of Lower Intestinal Tract, Via Natural or Artificial Opening Endoscopic (ICD-10-PCS; CPT 45378; principal; 2022-04-21 11:50)
DX: R19.5 Other fecal abnormalities (principal); D12.0 Benign neoplasm of cecum; D12.3 Benign neoplasm of transverse colon; K57.30 Diverticulosis of large intestine without perforation or abscess without bleeding; K64.8 Other hemorrhoids; I10 Essential (primary) hypertension; E78.5 Hyperlipidemia, unspecified; E11.9 Type 2 diabetes mellitus without complications; Z79.4 Long term (current) use of insulin; Z79.52 Long term (current) use of systemic steroids; Z79.899 Other long term (current) drug therapy; Z94.0 Kidney transplant status; Z85.828 Personal history of other malignant neoplasm of skin; Z92.21 Personal history of antineoplastic chemotherapy; Z92.3 Personal history of irradiation; Z87.891 Personal history of nicotine dependence
CPT/HCPCS: 45385; 45380; 36415; 80048; 82947; 85027; 85610; 88305

== ENCOUNTER 2022-05-14 08:13 | Outpatient (REF) | payer OTHER, MEDICARE, SELFPAY ==
[2022-05-14 10:40] LABS: MANUAL DIFF FLAG NO
[2022-05-14 10:42] LABS: Basophils Percent Auto 0.2 % (0-2); Eosinophils Percent Auto 0.7 % (0-4); Hemoglobin 14.5 g/dl (14.0-18.0); Imm Gran Abs Auto 0.01 X10*3/uL (0.00-0.03); Imm Gran Pct Auto 0.2 % (0.0-0.4); Lymphocytes Absolute Auto 1.5 X10*3/uL (1.2-4.9); Lymphocytes Percent Auto 23.9 % (20-40); Mean Corpuscular HGB Conc 34.5 g/dl (31.0-36.0); Mean Corpuscular Hemoglobin 29.7 pg (27.0-33.0); Mean Corpuscular Volume 85.9 fL (80.0-98.0); Mean Platelet Volume 9.8 fL (9.4-12.4); Monocytes Absolute Auto 0.5 X10*3/uL (0.1-1.2); Monocytes Percent Auto 8.4 % (2-11); Neutrophils Absolute Auto 4.1 x10*3/uL (2.0-8.3); Neutrophils Percent Auto 66.6 % (45-73); Platelet Count 121 X10*3/uL (160-400); Red Blood Count 4.89 X10*6/uL (4.60-5.80); Red Cell Distribution Width 14.8 % (11.0-16.0); White Blood Count 6.1 X10*3/uL (4.8-10.8)
[2022-05-14 11:37] LABS: Estimated Average Glucose 146 mg/dL; Hemoglobin A1c % 6.7 %
[2022-05-14 11:38] LABS: Alanine Aminotransferase 13 U/L (0-40); Alkaline Phosphatase 67 U/L (39-117); Anion Gap 15 (12-20); Aspartate Amino Transferase 14 U/L (5-37); Bilirubin Total 1.9 mg/dL (0.0-1.0); Blood Urea Nitrogen 21 mg/dL (9-16); Calcium 9.2 mg/dL (8.4-10.2); Carbon Dioxide 26 mmol/L (22-29); Chloride 104 mmol/L (96-108); Estimated Glomerular Filt Rate 51; Glucose Random 240 mg/dL (60-115); Potassium 3.4 mmol/L (3.3-5.1); Sodium 142 mmol/L (135-145); Total Protein 6.1 g/dL (6.5-8.0)
[2022-05-14 11:41] LABS: Creatinine Urine 214.27 mg/dL; Microalbum/Creatinine Ratio Ur 71.8 ug/mg cr
== END 2022-05-14 08:14 | disposition home or self-care (01) ==
LOC: HO.10HDL 08:13
PROVIDERS: Visit Provider Internal Medicine
DX: E11.22 Type 2 diabetes mellitus with diabetic chronic kidney disease (principal); I12.9 Hypertensive chronic kidney disease with stage 1 through stage 4 chronic kidney disease, or unspecified chronic kidney disease; N18.9 Chronic kidney disease, unspecified; K21.9 Gastro-esophageal reflux disease without esophagitis; D63.1 Anemia in chronic kidney disease
CPT/HCPCS: 36415; 80053; 82043; 83036; 85025

== ENCOUNTER 2022-07-16 14:22 | Outpatient (REF) | payer OTHER, MEDICARE, SELFPAY ==
--- NOTE | ~2022-07-16 | XR_ITS ---
EXAMINATION: XR CHEST CLINICAL INFORMATION: Reason for Exam LEFT ARM PAIN COMPARISON: Chest radiograph 12/17/2020 TECHNIQUE: 2 views of the chest FINDINGS: Symmetric subcentimeter nodular opacities overlying the lower chest probable to reflect nipple shadows however recommend repeat radiographs with nipple markers and oblique views for confirmation to ensure no underlying pulmonary nodule. Lungs appear otherwise clear. No pneumothorax or pleural effusion. Normal cardiomediastinal silhouette. Right subclavian vascular stent. XR/XR chest 2V IMPRESSION: 1. Symmetric subcentimeter nodular opacities overlying the lower chest probable to reflect nipple shadows however recommend repeat radiographs with nipple markers and oblique views for confirmation to ensure no underlying pulmonary nodule. Lungs appear otherwise clear.
== END 2022-07-16 14:23 | disposition home or self-care (01) ==
LOC: HO.XRAY 14:22
PROVIDERS: PCP Internal Medicine; Visit Provider Internal Medicine
DX: M79.602 Pain in left arm (principal); R07.89 Other chest pain
CPT/HCPCS: 71046

== ENCOUNTER 2022-07-23 15:44 | Emergency (ER) | payer OTHER, MEDICARE, SELFPAY ==
--- NOTE | ~2022-07-23 | XR_ITS ---
EXAMINATION: XR CHEST CLINICAL INFORMATION: Chest pain COMPARISON: 07/16/2022 TECHNIQUE: Frontal view of the chest was obtained. FINDINGS: Cardiac leads overlie the chest. The lungs are well expanded. There is no focal consolidation, edema, or effusion. No pneumothorax. The cardiomediastinal silhouette is within normal limits. No acute osseous abnormality. Right subclavian vascular stents. XR/XR chest 1V IMPRESSION: No acute pulmonary disease.
--- NOTE | 2022-07-23 15:46 | ECG_ITS ---
Test Reason : CHEST PAIN Blood Pressure : / mmHG Vent. Rate : 079 BPM Atrial Rate : 079 BPM P-R Int : 160 ms QRS Dur : 102 ms QT Int : 372 ms P-R-T Axes : 056 040 107 degrees QTc Int : 426 ms Normal sinus rhythm Minimal voltage criteria for LVH, may be normal variant ( [place] product ) ST elevation consider inferior injury or acute infarct ACUTE ND / STEMI Consider right ventricular involvement in acute inferior infarct Abnormal ECG When compared with ECG of 12-OCT-2007 04:57, T wave inversion now evident in Lateral leads QT has shortened Referred By: Echo Rubio Electronically Signed By:ROWDY CHAVES
--- NOTE | 2022-07-23 16:03 | ECG_ITS ---
Test Reason : stemi? Blood Pressure : / mmHG Vent. Rate : 074 BPM Atrial Rate : 074 BPM P-R Int : 160 ms QRS Dur : 102 ms QT Int : 370 ms P-R-T Axes : 044 033 107 degrees QTc Int : 410 ms Normal sinus rhythm Minimal voltage criteria for LVH, may be normal variant ( [place] product ) ST & T wave abnormality, consider lateral ischemia Abnormal ECG When compared with ECG of 23-JUL-2022 15:53, No significant change was found Referred By: Echo Rubio Electronically Signed By:ROWDY CHAVES
--- NOTE | 2022-07-23 16:03 | ED.CHESTPAIN ---
HPI - Chest Pain General Stated Complaint: chest pain/pain in left arm Related Data Home Medications Medication Instructions Recorded Confirmed carvedilol 25 mg tablet 25 mg PO BID 01/18/20 04/21/22 ezetimibe 10 mg tablet 10 mg PO DAILY 01/18/20 04/21/22 omeprazole 20 mg tablet,delayed 20 mg PO DAILY 01/18/20 04/21/22 release prednisone 5 mg/5 mL oral solution 7.5 mg PO DAILY 01/18/20 04/21/22 tacrolimus 1 mg capsule,extended 2 mg PO BID 01/18/20 04/21/22 release 24 hr amlodipine 10 mg tablet 10 mg PO DAILY 08/02/20 04/21/22 insulin NPH isoph U-100 human 100 14 unit subcut QAM 08/02/20 04/21/22 unit/mL (3 mL) subcutaneous pen (Humulin N NPH U-100 Insulin KwikPen) Allergies Allergy/AdvReac Type Severity Reaction Status Date / Time No Known Allergies Allergy Mild NOT Verified 03/15/21 15:39 [No Known Allergies*] APPLICABLE [facility] Past Medical History Medical History (Updated 04/18/22 @ 06:39 by Ginna Ortega RN) Diabetes Essential hypertension Hyperlipidemia Surgical History History of skin surgery Kidney replaced by transplant Renal transplant recipient S/P nasal surgery Family History Family History Father Kidney disease Social History Social History Alcohol intake: current Patient Tobacco Use Status: Former Tobacco user Quit Date: age 33 Years Smoked: 12+ Advance Directives Date on File: 01/06/20 Course Course Course Narrative: This is a rapid medical exam. Deferred additional HPI, ROS, PE to primary provider. 67 yo male with history of renal transplant (02/2008-[facility]), DM, HTN here with complaints of CP/left arm pain intermittent x one month. Patient had EKG done and was immediately brought back to ER room from triage. Discharge Plan Discharge Prescriptions: No Action tacrolimus 1 mg capsule,extended release 24hr 2 mg PO BID Rx Instructions: must administer in the morning on an empty stomach, 1 hour before or 2 hours after a meal prednisone 5 mg/5 mL solution 7.5 mg PO DAILY carvedilol 25 mg tablet 25 mg PO BID Rx Instructions: must administer with a meal/food ezetimibe 10 mg tablet 10 mg PO DAILY omeprazole 20 mg tablet,delayed release (DR/EC) 20 mg PO DAILY Humulin N NPH Insulin KwikPen 100 unit/mL (3 mL) insulin pen 14 unit subcut QAM amlodipine 10 mg tablet 10 mg PO DAILY
[2022-07-23 16:06] VITALS: PULSE 90; RESP 20; O2SAT 98; BMI 23.8
--- NOTE | 2022-07-23 16:08 | ECG_ITS ---
Test Reason : cp Blood Pressure : / mmHG Vent. Rate : 071 BPM Atrial Rate : 071 BPM P-R Int : 166 ms QRS Dur : 102 ms QT Int : 378 ms P-R-T Axes : 057 047 109 degrees QTc Int : 410 ms Sinus rhythm with Premature atrial complexes Minimal voltage criteria for LVH, may be normal variant ( [place] product ) ST & T wave abnormality, consider lateral ischemia Abnormal ECG When compared with ECG of 23-JUL-2022 16:05, Premature atrial complexes are now Present Referred By: Generic ED Physician Electronically Signed By:ROWDY CHAVES
[2022-07-23 16:10] VITALS: PULSE 77
[2022-07-23 16:18] LABS: MANUAL DIFF FLAG NO
[2022-07-23 16:19] VITALS: RESP 22
--- NOTE | 2022-07-23 16:20 | PC.NURSE ---
Addendum entered by Lorri Borrego RN 07/23/22 16:27: Pt had kidney transplant in 2007. Original Note: Pt on stretcher, airway open and patent, no obvious signs of distress, speaking in full sentences, no difficulty breathing. A&ox4, skin normal for ethnicity, warm, and dry. Lung sounds clr all rojas bilaterally. Heart sounds normal. Bowel sounds present all rojas. No edema noted. Pt reports that he has had chest pain that radiated to his back and left shoulder and arm, described as a dull ache that pt states he has had for a little more than a month. Pt reports that his kidney doctor and transplant nurse wanted him to get checked out. Pt rates chest pain 3/.
[2022-07-23 16:22] LABS: Basophils Percent Auto 0.1 % (0-2); Eosinophils Percent Auto 0.1 % (0-4); Hematocrit 45.8 % (42.0-52.0); Hemoglobin 15.7 g/dl (14.0-18.0); Imm Gran Abs Auto 0.02 X10*3/uL (0.00-0.03); Imm Gran Pct Auto 0.2 % (0.0-0.4); Lymphocytes Absolute Auto 1.5 X10*3/uL (1.2-4.9); Lymphocytes Percent Auto 18.2 % (20-40); Mean Corpuscular HGB Conc 34.3 g/dl (31.0-36.0); Mean Corpuscular Hemoglobin 29.6 pg (27.0-33.0); Mean Corpuscular Volume 86.3 fL (80.0-98.0); Mean Platelet Volume 9.1 fL (9.4-12.4); Monocytes Absolute Auto 0.5 X10*3/uL (0.1-1.2); Monocytes Percent Auto 5.8 % (2-11); Neutrophils Absolute Auto 6.3 x10*3/uL (2.0-8.3); Neutrophils Percent Auto 75.6 % (45-73); Platelet Count 143 X10*3/uL (160-400); Red Blood Count 5.31 X10*6/uL (4.60-5.80); White Blood Count 8.3 X10*3/uL (4.8-10.8)
[2022-07-23 16:32] LABS: Prothrombin Time 10.9 SEC (10.0-13.1)
[2022-07-23 16:42] LABS: Alanine Aminotransferase 15 U/L (0-40); Albumin Level 4.7 g/dL (3.5-5.0); Alkaline Phosphatase 81 U/L (39-117); Anion Gap 15 (12-20); Aspartate Amino Transferase 22 U/L (5-37); Bilirubin Direct 0.3 mg/dL (0.0-0.5); Bilirubin Total 1.4 mg/dL (0.0-1.0); Blood Urea Nitrogen 21 mg/dL (9-16); Carbon Dioxide 26 mmol/L (22-29); Chloride 105 mmol/L (96-108); Creatinine Clr Calc Pharmacy 49.3; Estimated Glomerular Filt Rate 47; Glucose Random 240 mg/dL (60-115); Magnesium 1.6 mg/dL (1.6-2.6); Potassium 4.7 mmol/L (3.3-5.1); Sodium 141 mmol/L (135-145); Total Protein 7.4 g/dL (6.5-8.0)
[2022-07-23] MEDS: Aspirin 81 MG TAB.CHEW 324 MG PO (16:44)
[2022-07-23 16:45] LABS: Troponin-I High Sensitivity 10.3 ng/L (<3.5-35.0)
--- NOTE | 2022-07-23 16:48 | ED_ITS ---
HPI - Chest Pain General Chief Complaint: Chest Pain Stated Complaint: chest pain/pain in left arm Time Seen by Provider: 07/23/22 16:23 History of Present Illness HPI narrative: Patient is a 67-year-old male with a history of diabetes, hypertension, high cholesterol, history of kidney transplant back in 2007 presented today with having chest pain that is mid chest goes to the left side. Associated with no shortness of breath no diaphoresis. The pain is on and off. There is no spe cific trigger. Most recently the pain started 2 hours ago. Patient still has pain on arrival in the emergency department. Related Data Home Medications Medication Instructions Recorded Confirmed carvedilol 25 mg tablet 25 mg PO BID 01/18/20 04/21/22 ezetimibe 10 mg tablet 10 mg PO DAILY 01/18/20 04/21/22 omeprazole 20 mg tablet,delayed 20 mg PO DAILY 01/18/20 04/21/22 release prednisone 5 mg/5 mL oral solution 7.5 mg PO DAILY 01/18/20 04/21/22 tacrolimus 1 mg capsule,extended 2 mg PO BID 01/18/20 04/21/22 release 24 hr amlodipine 10 mg tablet 10 mg PO DAILY 08/02/20 04/21/22 insulin NPH isoph U-100 human 100 14 unit subcut QAM 08/02/20 04/21/22 unit/mL (3 mL) subcutaneous pen (Humulin N NPH U-100 Insulin KwikPen) Allergies Allergy/AdvReac Type Severity Reaction Status Date / Time No Known Allergies Allergy Mild NOT Verified 03/15/21 15:39 [No Known Allergies*] APPLICABLE Review of Systems Review of Systems: Positive chest pain no shortness of breath no diaphoresis Yes all other systems are reviewed and are negative [facility] Past Medical History Attestation statement: The following information was validated with the patient. Medical History Diabetes Essential hypertension Hyperlipidemia Surgical History History of skin surgery Kidney replaced by transplant Renal transplant recipient S/P nasal surgery Family History Family History Father Kidney disease Social History Social History Alcohol intake: current Alcohol intake frequency: holidays/special occasions only Patient Tobacco Use Status: Former Tobacco user Quit Date: age 33 Years Smoked: 12+ Smoked in Last 30 Days: No Use of substances other than those prescribed or required for medical reasons: No Advance Directives: Yes Advance Directives on File: Yes Advance Directives Date on File: 01/06/20 Physical Exam Vital Signs: Vital Signs: Last Vital Signs Pulse 90 07/23/22 16:06 Resp 22 H 07/23/22 16:19 Pulse Ox 98 07/23/22 16:06 O2 Del Method Room Air 07/23/22 16:06 BMI result Body Mass Index 23.8 Appearance: Alert. Oriented X3. No acute distress. Eyes: Pupils equal, round and reactive to light. ENT: Pharynx normal. Neck: Normal inspection. Neck supple. No lymph nodes noted. No crepitus CVS: Normal heart rate and rhythm. Pulses normal. Normal S1 and S2 Respiratory: No respiratory distress. Breath sounds normal. No Wheezing. No rales Abdomen: Soft and nontender. No rigidity. No distention. good BS x4 Skin: Skin warm and dry. Normal skin color. Normal skin turgor. Extremities: No lower extremity edema. Neurovascular intact to all extremities. No Lacerations. No Rash Neuro: Oriented X 3. No motor deficit. No sensory deficit. Moving all extermities. No slurred speech Medications Administered Discontinued Medications Generic Name Dose Route Start Last Admin Trade Name Freq PRN Reason Stop Dose Admin Aspirin 324 mg 07/23/22 16:40 07/23/22 16:44 Aspirin 81 Mg Tab.Chew PO 07/23/22 16:41 324 mg ONCE ONE Administration Medical Decision Making Medical Decision Making MDM Narrative: Patient's initial EKG showed a sinus pattern with significant ST segment elevation in 3 and AVF. There is no reciprocal changes noted. A 2nd EKG was done approximately 10 minutes later. It did not show any acute changes from the initial 1. A final EKG was done another 20 minutes later it is essentially the same. These findings were relayed to the designer architect at [facility] Dr. Adkins, aware of the findings. Thanks patient should go to the laborer adjustable steel joist. Accepted the patient to the laborer adjustable steel joist at [facility]. Risk and benefit of transfer explained to patient. An ambulance was called for patient immediately. He was started on Brilinta 180 mg. Aspirin 324 mg. Lipitor 80 mg. A bolus of heparin 4000 units was given. Patient is going to [facility]. Differential Diagnosis Differential Diagnoses: The differential diagnosis associated with the presentation includes STEMI, Admission/Observation Consideration of admission/observation: Escalation of care including admission/observation considered Consult Healthcare Provider Management of the patient was discussed with: Land Law Examiner Interventional Cardiology at [facility] Lab Data MDM Lab Attestation statement: I reviewed the patient's lab results. 07/23/22 16:13 07/23/22 16:13 Labs: Lab Results 07/23/22 07/23/22 07/23/22 Range/Units 16:13 16:13 16:13 WBC 8.3 (4.8-10.8) X10*3/uL RBC 5.31 (4.60-5.80) X10*6/uL Hgb 15.7 (14.0-18.0) g/dl Hct 45.8 (42.0-52.0) % MCV 86.3 (80.0-98.0) fL MCH 29.6 (27.0-33.0) pg MCHC 34.3 (31.0-36.0) g/dl RDW 14.0 (11.0-16.0) % Plt Count 143 L (160-400) X10*3/uL MPV 9.1 L (9.4-12.4) fL Immature Gran % (Auto) 0.2 (0.0-0.4) % Neut % (Auto) 75.6 H (45-73) % Lymph % (Auto) 18.2 L (20-40) % [place] % (Auto) 5.8 (2-11) % Eos % (Auto) 0.1 (0-4) % Baso % (Auto) 0.1 (0-2) % Lymph # (Auto) 1.5 (1.2-4.9) X10*3/uL [place] # (Auto) 0.5 (0.1-1.2) X10*3/uL Eos # (Auto) 0.0 (0.0-0.4) X10*3/uL Baso # (Auto) 0.0 (0.0-0.2) X10*3/uL Abs Immat Gran (auto) 0.02 (0.00-0.03) X10*3/uL Absolute Neuts (auto) 6.3 (2.0-8.3) x10*3/uL Absolute Nucleated RBC 0.000 (0.0-0.012) X10*3/uL Nucleated RBC % (auto) 0.0 (0.0-0.2) /100WBC PT 10.9 (10.0-13.1) SEC INR 1.0 (0.9-1.1) Sodium 141 (135-145) mmol/L Potassium 4.7 D (3.3-5.1) mmol/L Chloride 105 (96-108) mmol/L Carbon Dioxide 26 (22-29) mmol/L Anion Gap 15 (12-20) BUN 21 H (9-16) mg/dL Creatinine 1.48 H (0.5-1.4) mg/dL Estim Creat Clear Calc 49.3 Estimated GFR 47 Random Glucose 240 H (60-115) mg/dL Calcium 10.0 D (8.4-10.2) mg/dL Magnesium 1.6 (1.6-2.6) mg/dL Total Bilirubin 1.4 H (0.0-1.0) mg/dL Direct Bilirubin 0.3 (0.0-0.5) mg/dL AST 22 (5-37) U/L ALT 15 (0-40) U/L Alkaline Phosphatase 81 (39-117) U/L Troponin I High Sens (<3.5-35.0) ng/L Total Protein 7.4 (6.5-8.0) g/dL Albumin 4.7 (3.5-5.0) g/dL 07/23/22 Range/Units 16:13 WBC (4.8-10.8) X10*3/uL RBC (4.60-5.80) X10*6/uL Hgb (14.0-18.0) g/dl Hct (42.0-52.0) % MCV (80.0-98.0) fL MCH (27.0-33.0) pg MCHC (31.0-36.0) g/dl RDW (11.0-16.0) % Plt Count (160-400) X10*3/uL MPV (9.4-12.4) fL Immature Gran % (Auto) (0.0-0.4) % Neut % (Auto) (45-73) % Lymph % (Auto) (20-40) % [place] % (Auto) (2-11) % Eos % (Auto) (0-4) % Baso % (Auto) (0-2) % Lymph # (Auto) (1.2-4.9) X10*3/uL [place] # (Auto) (0.1-1.2) X10*3/uL Eos # (Auto) (0.0-0.4) X10*3/uL Baso # (Auto) (0.0-0.2) X10*3/uL Abs Immat Gran (auto) (0.00-0.03) X10*3/uL Absolute Neuts (auto) (2.0-8.3) x10*3/uL Absolute Nucleated RBC (0.0-0.012) X10*3/uL Nucleated RBC % (auto) (0.0-0.2) /100WBC PT (10.0-13.1) SEC INR (0.9-1.1) Sodium (135-145) mmol/L Potassium (3.3-5.1) mmol/L Chloride (96-108) mmol/L Carbon Dioxide (22-29) mmol/L Anion Gap (12-20) BUN (9-16) mg/dL Creatinine (0.5-1.4) mg/dL Estim Creat Clear Calc Estimated GFR Random Glucose (60-115) mg/dL Calcium (8.4-10.2) mg/dL Magnesium (1.6-2.6) mg/dL Total Bilirubin (0.0-1.0) mg/dL Direct Bilirubin (0.0-0.5) mg/dL AST (5-37) U/L ALT (0-40) U/L Alkaline Phosphatase (39-117) U/L Troponin I High Sens 10.3 (<3.5-35.0) ng/L Total Protein (6.5-8.0) g/dL Albumin (3.5-5.0) g/dL Independent Interpretation I performed an independent interpretation of an: EKG Interpretation: The initial EKG was at 15:53. It showed a sinus pattern heart rate was [address] segment elevation over lead 3 and AVF. There is no reciprocal changes noted. There is a 2nd EKG done at 16:05. EKG showed a sinus pattern heart rate of [address] segment or elevation over lead 3 and AVF. There is no reciprocal changes noted. A 3rd EKG was done at 16:31. It showed a sinus pattern heart rate was 70 VT QRS QT within normal limits there is significant ST segment elevation again noted in lead 3 and AVF without any reciprocal changes. Radiology Impression Discussion of test interpretation with radiology: I have reviewed the radiologist's reading. Radiologist Impression: Chest x-ray is grossly negative. Independent Historian Clinical information obtained from an independent historian. History obtained from or confirmed by: Spouse External Record Review External record reviewed: Inpatient record Chronic Conditions Patient?s care impacted by: Diabetes and Hypertension History of kidney transplant Critical Care Time Critical Care Time Critical Care Time: Yes Total Critical Care Time: 40 Attestation: I have personally provided 40 minutes of critical care time exclusive of time spent on separately billable procedures. Time includes review of lab data, radiology results, discussion with consultants, and monitoring for potential decompensation. Interventions were performed as documented above Discharge Plan Discharge Clinical Impression: ST elevation (STEMI) myocardial infarction Patient Disposition: Xfer [facility] Prescriptions: No Action tacrolimus 1 mg capsule,extended release 24hr 2 mg PO BID Rx Instructions: must administer in the morning on an empty stomach, 1 hour before or 2 hours after a meal prednisone 5 mg/5 mL solution 7.5 mg PO DAILY carvedilol 25 mg tablet 25 mg PO BID Rx Instructions: must administer with a meal/food ezetimibe 10 mg tablet 10 mg PO DAILY omeprazole 20 mg tablet,delayed release (DR/EC) 20 mg PO DAILY Humulin N NPH Insulin KwikPen 100 unit/mL (3 mL) insulin pen 14 unit subcut QAM amlodipine 10 mg tablet 10 mg PO DAILY
[2022-07-23] MEDS: Ticagrelor 90 MG TABLET 180 MG PO (17:05)
[2022-07-23] MEDS: Heparin Sodium,Porcine 5,000 UNIT/ML VIAL 4000 UNIT IVPUSH (17:06)
[2022-07-23] MEDS: Atorvastatin Calcium 80 MG TABLET PO (17:06)
[2022-07-23 17:10] VITALS: BP 161/95; PULSE 73; RESP 16; TEMP 36.6; O2SAT 97
--- NOTE | 2022-07-23 17:13 | PC.NURSE ---
Pt reporting that the chest pain is better. Pt reporting pain level of 2/10. Pt will be transported to [facility] via ambulance. Pt medicated per provider order.
--- NOTE | 2022-07-23 17:38 | PC.NURSE ---
RN to RN report given to Falguni at [facility] Software Development Analyst.
== END 2022-07-23 17:43 | disposition short-term general hospital (02) ==
PROVIDERS: Nurse Practitioner Family; Emergency Provider Emergency Medicine Emergency Medical Services; PCP Internal Medicine
DX: I21.3 ST elevation (STEMI) myocardial infarction of unspecified site (principal); R07.89 Other chest pain; Z20.822 Contact with and (suspected) exposure to COVID-19; Z20.828 Contact with and (suspected) exposure to other viral communicable diseases; Z79.899 Other long term (current) drug therapy
CPT/HCPCS: 36415; 71045; 80048; 80076; 83735; 84484; 85025; 85610; 93005; 96374; 99285; J1643

== ENCOUNTER 2022-07-31 11:37 | Outpatient (REF) | payer OTHER, MEDICARE, SELFPAY ==
[2022-07-31 13:54] LABS: Alanine Aminotransferase 36 U/L (0-40); Albumin Level 4.4 g/dL (3.5-5.0); Alkaline Phosphatase 77 U/L (39-117); Anion Gap 16 (12-20); Aspartate Amino Transferase 25 U/L (5-37); Bilirubin Total 1.2 mg/dL (0.0-1.0); Blood Urea Nitrogen 24 mg/dL (9-16); C Reactive Protein 0.76 mg/dL (< or = 0.50); Carbon Dioxide 25 mmol/L (22-29); Chloride 107 mmol/L (96-108); Estimated Glomerular Filt Rate 44; Glucose Random 150 mg/dL (60-115); Potassium 4.5 mmol/L (3.3-5.1); Sodium 143 mmol/L (135-145); Total Protein 6.8 g/dL (6.5-8.0)
[2022-07-31 14:16] LABS: Estimated Average Glucose 134 mg/dL; Hemoglobin A1c % 6.3 %
[2022-07-31 14:37] LABS: Troponin-I High Sensitivity 41.9 ng/L (<3.5-35.0)
== END 2022-07-31 11:38 | disposition home or self-care (01) ==
LOC: HO.10HDL 11:37
PROVIDERS: Visit Provider Internal Medicine
DX: I25.10 Atherosclerotic heart disease of native coronary artery without angina pectoris (principal); E11.9 Type 2 diabetes mellitus without complications; N18.9 Chronic kidney disease, unspecified
CPT/HCPCS: 36415; 80053; 82550; 83036; 84484; 86140

== ENCOUNTER 2022-08-29 09:35 | Outpatient (REF) | payer OTHER, MEDICARE, SELFPAY ==
[2022-08-29 11:12] LABS: Anion Gap 14 (12-20); Blood Urea Nitrogen 17 mg/dL (9-16); C Reactive Protein 0.33 mg/dL (< or = 0.50); Calcium 9.7 mg/dL (8.4-10.2); Carbon Dioxide 24 mmol/L (22-29); Chloride 110 mmol/L (96-108); Estimated Glomerular Filt Rate 50; Glucose Random 116 mg/dL (60-115); Potassium 3.8 mmol/L (3.3-5.1); Sodium 144 mmol/L (135-145)
[2022-08-29 11:30] LABS: Troponin-I High Sensitivity 18.2 ng/L (<3.5-35.0)
== END 2022-08-29 09:36 | disposition home or self-care (01) ==
LOC: HO.10HDL 09:35
PROVIDERS: Visit Provider Internal Medicine
DX: R07.9 Chest pain, unspecified (principal); Z85.9 Personal history of malignant neoplasm, unspecified; Z95.818 Presence of other cardiac implants and grafts
CPT/HCPCS: 36415; 80048; 82550; 84484; 86140

== ENCOUNTER 2022-09-19 07:44 | Outpatient (REF) | payer OTHER, MEDICARE, SELFPAY ==
[2022-09-19 11:01] LABS: Cholesterol 129 mg/dL; HDL Cholesterol 35 mg/dL; LDL Cholesterol Calculated 60 mg/dl; Triglycerides 171 mg/dL
== END 2022-09-19 07:45 | disposition home or self-care (01) ==
LOC: HO.10HDL 07:44
PROVIDERS: Visit Provider Internal Medicine Cardiovascular Disease
DX: I25.10 Atherosclerotic heart disease of native coronary artery without angina pectoris (principal)
CPT/HCPCS: 36415; 80061

== ENCOUNTER 2022-10-02 12:17 | Outpatient (REF) | payer OTHER, MEDICARE, SELFPAY ==
[2022-10-02 13:34] LABS: MANUAL DIFF FLAG NO
[2022-10-02 13:38] LABS: Basophils Percent Auto 0.2 % (0-2); Eosinophils Percent Auto 0.2 % (0-4); Hematocrit 41.8 % (42.0-52.0); Hemoglobin 14.3 g/dl (14.0-18.0); Imm Gran Abs Auto 0.05 X10*3/uL (0.00-0.03); Imm Gran Pct Auto 0.5 % (0.0-0.4); Lymphocytes Absolute Auto 1.5 X10*3/uL (1.2-4.9); Mean Corpuscular HGB Conc 34.2 g/dl (31.0-36.0); Mean Corpuscular Hemoglobin 29.5 pg (27.0-33.0); Mean Corpuscular Volume 86.4 fL (80.0-98.0); Mean Platelet Volume 10.2 fL (9.4-12.4); Monocytes Absolute Auto 0.5 X10*3/uL (0.1-1.2); Monocytes Percent Auto 4.4 % (2-11); Neutrophils Absolute Auto 8.9 x10*3/uL (2.0-8.3); Neutrophils Percent Auto 80.7 % (45-73); Platelet Count 214 X10*3/uL (160-400); Red Blood Count 4.84 X10*6/uL (4.60-5.80); Red Cell Distribution Width 13.5 % (11.0-16.0)
[2022-10-02 14:07] LABS: Alanine Aminotransferase 22 U/L (0-40); Albumin Level 3.9 g/dL (3.5-5.0); Alkaline Phosphatase 91 U/L (39-117); Anion Gap 13 (12-20); Aspartate Amino Transferase 21 U/L (5-37); Blood Urea Nitrogen 16 mg/dL (9-16); Calcium 9.9 mg/dL (8.4-10.2); Carbon Dioxide 24 mmol/L (22-29); Chloride 107 mmol/L (96-108); Estimated Glomerular Filt Rate 57; Glucose Random 144 mg/dL (60-115); Potassium 4.1 mmol/L (3.3-5.1); Sodium 140 mmol/L (135-145); Total Protein 6.6 g/dL (6.5-8.0)
[2022-10-02 14:18] LABS: Troponin-I High Sensitivity 11.1 ng/L (<3.5-35.0)
== END 2022-10-02 12:18 | disposition home or self-care (01) ==
LOC: HO.10HDL 12:17
PROVIDERS: Visit Provider Internal Medicine
DX: R07.9 Chest pain, unspecified (principal); N18.9 Chronic kidney disease, unspecified
CPT/HCPCS: 36415; 80053; 84484; 85025

== ENCOUNTER 2022-11-26 11:05 | Outpatient (REF) | payer SELFPAY | END 2022-11-26 11:06 | disposition home or self-care (01) | LOC: HO.HAP 11:05 | PROVIDERS: Visit Provider Internal Medicine | DX: Z13.89 Encounter for screening for other disorder (principal) ==

== ENCOUNTER 2022-12-05 07:39 | Outpatient (REF) | payer SELFPAY ==
[2022-12-05 11:02] LABS: MANUAL DIFF FLAG NO
[2022-12-05 11:07] LABS: Basophils Percent Auto 0.1 % (0-2); Hematocrit 36.5 % (42.0-52.0); Hemoglobin 11.7 g/dl (14.0-18.0); Imm Gran Abs Auto 0.04 X10*3/uL (0.00-0.03); Imm Gran Pct Auto 0.4 % (0.0-0.4); Lymphocytes Absolute Auto 0.8 X10*3/uL (1.2-4.9); Lymphocytes Percent Auto 8.5 % (20-40); Mean Corpuscular HGB Conc 32.1 g/dl (31.0-36.0); Mean Corpuscular Hemoglobin 29.3 pg (27.0-33.0); Mean Corpuscular Volume 91.5 fL (80.0-98.0); Mean Platelet Volume 10.3 fL (9.4-12.4); Monocytes Absolute Auto 0.6 X10*3/uL (0.1-1.2); Monocytes Percent Auto 6.7 % (2-11); Neutrophils Absolute Auto 7.8 x10*3/uL (2.0-8.3); Neutrophils Percent Auto 84.3 % (45-73); Platelet Count 213 X10*3/uL (160-400); Red Blood Count 3.99 X10*6/uL (4.60-5.80); Red Cell Distribution Width 14.4 % (11.0-16.0); White Blood Count 9.2 X10*3/uL (4.8-10.8)
[2022-12-05 11:12] LABS: Estimated Average Glucose 111 mg/dL; Hemoglobin A1c % 5.5 % (<6.0)
[2022-12-05 11:30] LABS: Alanine Aminotransferase 19 U/L (0-40); Alkaline Phosphatase 75 U/L (39-117); Anion Gap 15 (12-20); Aspartate Amino Transferase 17 U/L (5-37); Bilirubin Total 1.1 mg/dL (0.0-1.0); Blood Urea Nitrogen 35 mg/dL (9-16); Calcium 9.9 mg/dL (8.4-10.2); Carbon Dioxide 20 mmol/L (22-29); Chloride 109 mmol/L (96-108); Estimated Glomerular Filt Rate 51; Glucose Random 172 mg/dL (60-115); Potassium 4.3 mmol/L (3.3-5.1); Sodium 140 mmol/L (135-145); Total Protein 6.4 g/dL (6.5-8.0)
== END 2022-12-05 07:40 | disposition home or self-care (01) ==
LOC: HO.10HDL 07:39
PROVIDERS: Visit Provider Internal Medicine
DX: E11.9 Type 2 diabetes mellitus without complications (principal); I10 Essential (primary) hypertension; K21.9 Gastro-esophageal reflux disease without esophagitis
CPT/HCPCS: 36415; 80053; 83036; 85025

== ENCOUNTER 2023-01-09 07:50 | Outpatient (RCR) | payer OTHER, MEDICARE, SELFPAY | END 2023-01-30 14:26 | disposition home or self-care (01) | LOC: HO.WCC 07:50 | PROVIDERS: PCP Internal Medicine; Visit Provider Physician Assistant | DX: E11.622 Type 2 diabetes mellitus with other skin ulcer (principal); L89.319 Pressure ulcer of right buttock, unspecified stage; C44.92 Squamous cell carcinoma of skin, unspecified; I10 Essential (primary) hypertension; Z79.4 Long term (current) use of insulin; Z92.3 Personal history of irradiation; Z86.718 Personal history of other venous thrombosis and embolism | CPT/HCPCS: 99212; 99213 ==

== ENCOUNTER 2023-02-02 09:35 | Outpatient (REF) | payer OTHER, MEDICARE, SELFPAY ==
[2023-02-02 11:07] LABS: Basophils Percent Auto 0.2 % (0-2); Hematocrit 33.7 % (42.0-52.0); Hemoglobin 10.7 g/dl (14.0-18.0); Imm Gran Abs Auto 0.04 X10*3/uL (0.00-0.03); Imm Gran Pct Auto 0.4 % (0.0-0.4); Lymphocytes Absolute Auto 0.5 X10*3/uL (1.2-4.9); Lymphocytes Percent Auto 4.7 % (20-40); MANUAL DIFF FLAG SCAN; Mean Corpuscular HGB Conc 31.8 g/dl (31.0-36.0); Mean Corpuscular Hemoglobin 27.8 pg (27.0-33.0); Mean Corpuscular Volume 87.5 fL (80.0-98.0); Monocytes Absolute Auto 0.4 X10*3/uL (0.1-1.2); Monocytes Percent Auto 3.3 % (2-11); Neutrophils Absolute Auto 9.7 x10*3/uL (2.0-8.3); Neutrophils Percent Auto 91.4 % (45-73); Platelet Count 267 X10*3/uL (160-400); Red Blood Count 3.85 X10*6/uL (4.60-5.80); Red Cell Distribution Width 15.1 % (11.0-16.0); SCAN SMEAR FLAG 1; White Blood Count 10.6 X10*3/uL (4.8-10.8)
[2023-02-02 11:23] LABS: Anion Gap 19 (12-20); Blood Urea Nitrogen 23 mg/dL (9-16); Calcium 9.8 mg/dL (8.4-10.2); Carbon Dioxide 21 mmol/L (22-29); Chloride 103 mmol/L (96-108); Estimated Glomerular Filt Rate > 60; Glucose Random 170 mg/dL (60-115); Iron 40 mcg/dL (45-160); Magnesium 1.7 mg/dL (1.6-2.6); Percent Iron Saturation 21 % (15-50); Potassium 4.4 mmol/L (3.3-5.1); Sodium 139 mmol/L (135-145); Total Iron Binding Capacity 187 mcg/dL (228-428); Unsaturated Iron Binding 147 ug/dL
[2023-02-02 11:27] LABS: Estimated Average Glucose 123 mg/dL; Hemoglobin A1c % 5.9 % (<6.0)
[2023-02-02 11:31] LABS: SLIDE REVIEW VERIFIED
== END 2023-02-02 09:36 | disposition home or self-care (01) ==
LOC: HO.10HDL 09:35
PROVIDERS: Visit Provider Internal Medicine
DX: N18.9 Chronic kidney disease, unspecified (principal); E11.9 Type 2 diabetes mellitus without complications; D64.9 Anemia, unspecified; E83.42 Hypomagnesemia
CPT/HCPCS: 36415; 80048; 83036; 83540; 83735; 85025

== ENCOUNTER 2023-07-24 14:51 | Outpatient (REF) | payer SELFPAY | END 2023-07-24 14:52 | disposition home or self-care (01) | LOC: HO.HAP 14:51 | PROVIDERS: Visit Provider Internal Medicine | DX: Z13.89 Encounter for screening for other disorder (principal) ==

== ENCOUNTER 2023-11-12 09:00 | Outpatient (REF) | payer SELFPAY | END 2023-11-12 09:01 | disposition home or self-care (01) | LOC: HO.HAP 09:00 | PROVIDERS: Visit Provider Internal Medicine | DX: Z46.1 Encounter for fitting and adjustment of hearing aid (principal); H90.3 Sensorineural hearing loss, bilateral | CPT/HCPCS: 92593 ==

== ENCOUNTER 2023-12-10 14:18 | Outpatient (REF) | payer SELFPAY | END 2023-12-10 14:19 | disposition home or self-care (01) | LOC: HO.HAP 14:18 | PROVIDERS: Visit Provider Internal Medicine | DX: Z13.89 Encounter for screening for other disorder (principal) ==